=== PATIENT | male | born 1970 | race Caucasian/White ===

== ENCOUNTER 2016-07-18 09:32 | Emergency (ER) | payer BC, MEDICAID ==
[~2016-07-18] VITALS: Ht 165.1 cm; Wt 79.0 kg
[2016-07-18 09:34] VITALS: BP 142/87
== END 2016-07-18 10:58 | disposition home or self-care (01) ==
LOC: ER 09:54
DX: H10.9 Unspecified conjunctivitis (principal); I10 Essential (primary) hypertension; Z88.0 Allergy status to penicillin
CPT/HCPCS: 99283